=== PATIENT | female | born 1975 | race Asian ===

== ENCOUNTER 2024-04-06 23:13 | Emergency (ER) | payer MEDICAID ==
[~2024-04-06] VITALS: Ht 157.5 cm; Wt 54.5 kg
[2024-04-06 23:38] VITALS: BP 134/82; PULSE 87; RESP 14; TEMP 99.2; O2SAT 100
[2024-04-06 23:49] LABS: COVID AG,FIA SOURCE NASAL SWAB
[2024-04-07 00:11] LABS: SARS-COV2 (COVID) ANTIGEN,FIA Negative (Negative)
[2024-04-07 00:12] LABS: INFLUENZA TYPE A NEGATIVE FOR TYPE A (NEGATIVE); INFLUENZA TYPE B NEGATIVE FOR TYPE B (NEGATIVE)
[2024-04-07] MEDS ORDERED: AZIT-164 PO (03:48)
[2024-04-07] MEDS: AZITHROMYCIN 500 MG TABLET PO ONE (04:08)
[2024-04-07] MEDS: ALBUTEROL SULFATE HFA 90 MCG/PUFF 8 GM INHALER IH ONE (04:18)
== END 2024-04-07 04:18 | disposition home or self-care (01) ==
LOC: EMS 23:15
DX: R06.02 Shortness of breath (principal); J45.909 Unspecified asthma, uncomplicated; Z20.822 Contact with and (suspected) exposure to COVID-19
CPT/HCPCS: 99284; 87426; 87804; 94640; 71046; J0456; J3535